=== PATIENT | female | born 1950 | race American Indian/Alaskan Native ===

== ENCOUNTER 2017-03-08 13:20 | Day surgery (SDC) | payer OTHER ==
[2017-03-08] MEDS ORDERED: NACL 0.9% 1000 ML 1,000 ML IV SCH (14:00)
--- NOTE | 2017-03-08 14:16 | Anesthesia Day of Surgery ---
Anesthesia Day of Surgery - Day of Surgery Patient Examined: Yes Patient H&P Reviewed: Yes Patient is NPO: Yes
--- NOTE | 2017-03-08 14:18 | Anesthesia Consultation ---
Anesthesia Consult and Med Hx Date of service: 03/08/17 - Airway Anesthetic Teeth Evaluation: Dentures ROM Head & Neck: Adequate Mental/Hyoid Distance: Adequate Mallampati Class: Class II Intubation Access Assessment: Good - Pulmonary Exam CTA: Yes (blbs clear) - Cardiac Exam Cardiac Exam: RRR - Pre-Operative Health Status ASA Pre-Surgery Classification: ASA3 Proposed Anesthetic Plan: MAC - Pulmonary Hx Asthma: Yes - Cardiovascular System Hx Hypertension: Yes - Central Nervous System Hx Neuromuscular Disorder: Yes (OA)
[2017-03-08] MEDS ORDERED: DIPRIVAN 10 MG/ML IV ONE ×2 (16:19)
[2017-03-08] MEDS ORDERED: WATER FOR IRRIG STERILE IR ONE (16:29)
[2017-03-08] MEDS ORDERED: XYLOCAINE MPF 2% ONE (16:36)
--- NOTE | 2017-03-08 17:08 | Operative Report ---
Operative Report Operative Report: Date of procedure: 03/08/2017 Procedure: Colonoscopy with hot biopsy polypectomy and ablation.] Attending physician: Scooter Kuhn MD Gas Pumping Station Helper: Scooter Kuhn MD Indication: Patient is a 66-year-old female who presents for colorectal cancer screening. Consent: Informed consent was obtained after advising the patient and family regarding nature of this procedure, its indications, potential benefits as well as possible complications including but not limited to bleeding perforation and adverse reaction to medication, infection as well as other cardiopulmonary complications. An informed written and verbal consent was then obtained after due opportunity was provided for questions and answers. Monitoring: Patient was monitored continuously with pulse oximetry and electrocardiographic recordings as well as blood pressure recordings. Vital signs remained stable throughout this procedure with no untoward events. Preoperative assessment: Patient was assessed immediately prior to this procedure for capacity to tolerate monitored anesthesia care and moderate sedation as well as general anesthesia. Patient's ASA classification is 2, Mallampati class is 2, Hyomental distance is 3. Instrument: Fujinon videocolonoscope Medications: Propofol given intravenously in divided doses for details please refer to anesthesia records. Description of procedure: Patient was placed in the left lateral decubitus position after achieving sedation, a digital rectal examination was performed following which the colonoscope was introduced into the anal verge and advanced to the cecum which was identified by the cecal valve, the appendiceal orifice, as well as by the cecal strap and direct transillumination. The colonoscope was subsequently withdrawn with careful inspection of all mucosal surfaces. Patient tolerated this procedure well and was subsequently taken to the recovery room. The following findings were noted. Findings: The cecum was normal. The ascending colon was normal. The descending colon was normal. Patient had a few scattered diverticula in the sigmoid colon. Also in the sigmoid colon there were 2 diminutive polyps. One measured approximately 4-5 mm was removed by hot biopsy polypectomy. The other measured approximately 3 mm was flat and was ablated. The rectum was normal. On the retroflex view at the anal verge, patient had internal hemorrhoids. Impression: Diminutive sigmoid colon polyps status post hot biopsy polypectomy and ablation Mild diverticulosis Internal hemorrhoids. Plan: Follow pathology report High-fiber diet. Repeat colonoscopy in 5 years ifpolyp is adenoma.
--- NOTE | 2017-03-08 17:09 | Discharge Summary ---
Short Stay Discharge Plan Activity: advance as tolerated Weight Bearing Status: Weight Bear as Tolerated Diet: regular
[2017-03-08 17:35] VITALS: BP 124/75
== END 2017-03-08 13:21 | disposition home or self-care (01) ==
LOC: GIO 13:20
PROVIDERS: ATTEND Internal Medicine Gastroenterology
DX: Z12.11 Encounter for screening for malignant neoplasm of colon (principal); K63.5 Polyp of colon; K57.30 Diverticulosis of large intestine without perforation or abscess without bleeding; K64.8 Other hemorrhoids; M19.90 Unspecified osteoarthritis, unspecified site; J45.909 Unspecified asthma, uncomplicated; I10 Essential (primary) hypertension; Z98.51 Tubal ligation status; Z79.899 Other long term (current) drug therapy; Z87.891 Personal history of nicotine dependence; Z72.89 Other problems related to lifestyle
CPT/HCPCS: 45384; 45388; 88305; J2704; J7030

== ENCOUNTER 2018-04-15 21:26 | Emergency (ER) | payer MEDICARE ==
[2018-04-15 21:42] VITALS: BP 121/75
[2018-04-16] MEDS ORDERED: TORADOL IM ONE (04:16)
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
== END 2018-04-16 05:00 | disposition home or self-care (01) ==
LOC: ED 21:26
DX: R51 Headache (principal); M25.512 Pain in left shoulder; M25.562 Pain in left knee; M25.561 Pain in right knee; M62.830 Muscle spasm of back; J45.909 Unspecified asthma, uncomplicated; I10 Essential (primary) hypertension; V49.49XA Driver injured in collision with other motor vehicles in traffic accident, initial encounter; Z98.51 Tubal ligation status; Y93.89 Activity, other specified; Y92.410 Unspecified street and highway as the place of occurrence of the external cause; Y99.8 Other external cause status
CPT/HCPCS: 96372; 99281; J1885

== ENCOUNTER 2018-12-24 22:39 | Emergency (ER) | payer MEDICARE ==
[2018-12-24 23:48] LABS: Hematocrit 39.9 % (30.3-42.9); Hemoglobin 13.5 gm/dl (10.1-14.3); Mean Corpuscular HGB Conc 34 % (30-34); Mean Corpuscular Volume 92 fl (79-97); Platelet Count 274 K/mm3 (140-440); Red Blood Count 4.32 M/mm3 (3.65-5.03); Red Cell Distribution Width 14.1 % (13.2-15.2)
[2018-12-25 00:02] VITALS: BP 144/79
[2018-12-25 00:08] LABS: BUN/Creatinine Ratio 21; Blood Urea Nitrogen 15 mg/dL (7-17); Calcium 8.8 mg/dL (8.4-10.2); Hemolysis Index 18
--- NOTE | 2018-12-25 00:25 | XRay Report ---
PROCEDURE: XR CHEST ROUTINE 2V TECHNIQUE: PA and lateral views the chest were similar. HISTORY: chest pain COMPARISONS: None FINDINGS: There are calcified granulomas in the right hilum and right lung base. There are no acute infiltrates or effusions. The heart size is normal. The skeletal structures reveal mild disc degeneration of the dorsal spine. IMPRESSION: No acute cardiopulmonary process.. This document is electronically signed by Gerry Palma MD., December 25 2018 12:22:48 AM ET
[2018-12-25 03:31] LABS: Basophils % (Manual) 0 % (0.0-1.8); Total Cells Counted 100
[2018-12-25 03:32] LABS: Platelet Estimate Consistent w Auto; RBC Morphology Normal
--- NOTE | 2018-12-25 03:59 | Emergency Department Report ---
ED Chest Pain HPI - General Chief Complaint: Chest Pain Stated Complaint: CHEST PAIN ON LEFT SIDE/NUMBNESS ON LT SIDE Time Seen by Provider: 12/25/18 03:57 Source: patient Mode of arrival: Ambulatory Limitations: No Limitations - History of Present Illness Initial Comments: Patient is 68-year-old female with history of hypertension. Patient presented t o the ER complaining of left-sided chest pain, sharp in nature with radiation to the left arm. Patient denied any shortness of breath, nausea or vomiting. MD Complaint: chest pain Severity scale (0 -10): 10 - Related Data Home Medications Medication Instructions Recorded Confirmed Last Taken Atenolol 25 mg PO DAILY 03/08/17 03/08/17 03/08/17 Hydrochlorothiazide 50 mg PO DAILY 03/08/17 03/08/17 03/08/17 Previous Rx's Medication Instructions Recorded Last Taken Type Promethazine /Codeine 5 ml PO Q6H PRN #60 ml 10/20/14 Unknown Rx [Phenergan/Codeine 6.25-10 mg/5 ml] Baclofen [Lioresal] 10 mg PO TID #15 tab 04/16/18 Unknown Rx Ibuprofen [Motrin 800 MG tab] 800 mg PO Q8HR PRN 10 Days #30 04/16/18 Unknown Rx tablet Naproxen [Naprosyn] 500 mg PO BID #14 tablet 12/25/18 Unknown Rx Allergies Allergy/AdvReac Type Severity Reaction Status Date / Time No Known Allergies Allergy Verified 03/08/17 14:20 Heart Score - HEART Score History: Moderately suspicious EKG: Non-specific Age: > 65 Risk factors: 1-2 risk factors Troponin: < normal limit HEART Score: 5 - Critical Actions Critical Actions: 4-6 pts:12-16.6% risk of adverse cardiac event. Should be admitted ED Review of Systems ROS: Stated complaint: CHEST PAIN ON LEFT SIDE/NUMBNESS ON LT SIDE Other details as noted in HPI Comment: All other systems reviewed and negative Constitutional: denies: chills, fever Respiratory: denies: cough, orthopnea, shortness of breath, SOB with exertion, wheezing Gastrointestinal: denies: abdominal pain, nausea, diarrhea, constipation, hematochezia ED Past Medical Hx - Past Medical History Previous Medical History?: Yes Hx Hypertension: Yes Hx Asthma: Yes - Surgical History Past Surgical History?: Yes Additional Surgical History: tubiligation - Social History Smoking Status: Never Smoker Substance Use Type: None - Medications Home Medications: Home Medications Medication Instructions Recorded Confirmed Last Taken Type Promethazine /Codeine 5 ml PO Q6H PRN #60 ml 10/20/14 03/08/17 Unknown Rx [Phenergan/Codeine 6.25-10 mg/5 ml] Atenolol 25 mg PO DAILY 03/08/17 03/08/17 03/08/17 History Hydrochlorothiazide 50 mg PO DAILY 03/08/17 03/08/17 03/08/17 History Baclofen [Lioresal] 10 mg PO TID #15 tab 04/16/18 Unknown Rx Ibuprofen [Motrin 800 MG tab] 800 mg PO Q8HR PRN 10 Days #30 04/16/18 Unknown Rx tablet Naproxen [Naprosyn] 500 mg PO BID #14 tablet 12/25/18 Unknown Rx ED Physical Exam - General Limitations: No Limitations General appearance: alert, in no apparent distress - Head Head exam: Present: atraumatic, normocephalic, normal inspection - Eye Eye exam: Present: normal appearance, PERRL - ENT ENT exam: Present: normal exam, normal orophraynx, mucous membranes moist - Respiratory Respiratory exam: Present: normal lung sounds bilaterally - Cardiovascular Cardiovascular Exam: Present: regular rate, normal rhythm, normal heart sounds - GI/Abdominal GI/Abdominal exam: Present: soft - Extremities Exam Extremities exam: Present: normal inspection, full ROM, normal capillary refill - Back Exam Back exam: Present: normal inspection, full ROM. Absent: CVA tenderness (R), CVA tenderness (L) - Neurological Exam Neurological exam: Present: alert, oriented X3, CN II-XII intact, normal gait, reflexes normal - Skin Skin exam: Present: warm, intact, normal color ED Course Vital Signs 12/25/18 00:00 Temperature 98.3 F Pulse Rate 55 L Respiratory 18 Rate Blood Pressure 144/79 O2 Sat by Pulse 98 Oximetry - Reevaluation(s) Reevaluation #1: 12/25/18 04:00 I discussed with the patient and the need for admission for further management of our chest pain. Patient refused the admission and stated that she wanted to go home. Patient did not give any reason but she stated that she will follow-up with her primary care physician. ED Medical Decision Making - Lab Data Result diagrams: 12/24/18 23:32 12/24/18 23:32 - EKG Data -: EKG Interpreted by Me EKG shows normal: sinus rhythm Rate: normal - EKG Data Interpretation: no acute changes - Radiology Data Radiology results: report reviewed Chest x-ray is unremarkable. Critical care attestation.: If time is entered above; I have spent that time in minutes in the direct care of this critically ill patient, excluding procedure time. ED Disposition Clinical Impression: Chest pain Disposition: DC-07 LEFT AGAINST MED ADVICE Is pt being admited?: No Condition: Stable Instructions: Chest Pain (ED) Prescriptions: Naproxen [Naprosyn] 500 mg PO BID #14 tablet Referrals: MARIBEL POZO MD [Primary Care Provider] - 3-5 Days
== END 2018-12-25 04:00 | disposition left against medical advice (07) ==
LOC: ED 22:39
DX: R07.89 Other chest pain (principal); I10 Essential (primary) hypertension; J45.909 Unspecified asthma, uncomplicated; Z98.51 Tubal ligation status
CPT/HCPCS: 36415; 71046; 80048; 84484; 85007; 85025; 93005; 93010; 99284

== ENCOUNTER 2019-05-27 11:37 | Emergency (ER) | payer OTHER, MEDICARE ==
[2019-05-27 12:00] VITALS: BP 156/85
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
[2019-05-27] MEDS ORDERED: IBUPROFEN PO ONE (13:26)
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
== END 2019-05-27 14:47 | disposition home or self-care (01) ==
LOC: ED 11:37
DX: R07.89 Other chest pain (principal); M54.2 Cervicalgia; R51 Headache; I10 Essential (primary) hypertension; J45.909 Unspecified asthma, uncomplicated; Z98.51 Tubal ligation status; Z79.899 Other long term (current) drug therapy; V49.40XA Driver injured in collision with unspecified motor vehicles in traffic accident, initial encounter; Y93.89 Activity, other specified; Y92.410 Unspecified street and highway as the place of occurrence of the external cause; Y99.8 Other external cause status
CPT/HCPCS: 71046; 72040; 72070; 72100; 93005; 93010

== ENCOUNTER 2019-10-13 20:14 | Emergency (ER) | payer MEDICARE ==
[2019-10-13 20:56] VITALS: BP 126/59
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
== END 2019-10-14 02:14 | disposition left against medical advice (07) ==
LOC: ED 20:14
DX: R07.89 Other chest pain (principal); M54.2 Cervicalgia; Z53.21 Procedure and treatment not carried out due to patient leaving prior to being seen by health care provider
CPT/HCPCS: 72040

== ENCOUNTER 2022-02-23 15:05 | Emergency (ER) | payer MEDICARE ==
--- NOTE | 2022-02-23 16:03 | Emergency Department Report ---
ED Extremity Problem HPI - General Chief complaint: Extremity Problem,Nontraumatic Stated complaint: CT OF LUNGS Time Seen by Provider: 02/23/22 15:55 Source: patient Mode of arrival: Ambulatory Limitations: No Limitations - History of Present Illness Initial comments: Patient is a 71-year-old female presenting to ED at request of her PCP after outpatient ultrasound revealed DVT of her left lower extremity. She was sent here to obtain CT of her chest to rule out PE. She reports pain in her left leg for the past 2 weeks however denies any instances of chest pain or shortness of breath. Severity scale (0 -10): 10 - Related Data Home Medications Medication Instructions Recorded Confirmed Last Taken Hydrochlorothiazide 25 mg PO DAILY 03/08/17 05/27/19 05/27/19 Losartan [Cozaar] 100 mg PO QDAY 05/27/19 05/27/19 05/27/19 100 Previous Rx's Medication Instructions Recorded Last Taken Type Cyclobenzaprine [Flexeril] 10 mg PO TID PRN #10 tablet 05/27/19 Unknown Rx predniSONE [Deltasone] 20 mg PO DAILY #5 tablet 05/27/19 Unknown Rx traMADoL [Ultram 50 MG tab] 50 mg PO Q6HR PRN #10 tablet 02/23/22 Unknown Rx Allergies Allergy/AdvReac Type Severity Reaction Status Date / Time No Known Allergies Allergy Verified 03/08/17 14:20 ED Review of Systems ROS: Stated complaint: CT OF LUNGS Other details as noted in HPI Constitutional: denies: chills, fever Respiratory: denies: cough, shortness of breath, wheezing Cardiovascular: denies: chest pain, palpitations Gastrointestinal: denies: abdominal pain, nausea, diarrhea Musculoskeletal: denies: back pain, joint swelling, arthralgia Skin: denies: rash, lesions Neurological: denies: headache, weakness, paresthesias Psychiatric: denies: anxiety, depression ED Past Medical Hx - Past Medical History Hx Hypertension: Yes Hx Asthma: Yes - Surgical History Additional Surgical History: tubiligation - Social History Smoking Status: Never Smoker Substance Use Type: None - Medications Home Medications: Home Medications Medication Instructions Recorded Confirmed Last Taken Type Hydrochlorothiazide 25 mg PO DAILY 03/08/17 05/27/19 05/27/19 History Cyclobenzaprine [Flexeril] 10 mg PO TID PRN #10 tablet 05/27/19 Unknown Rx Losartan [Cozaar] 100 mg PO QDAY 05/27/19 05/27/19 05/27/19 History 100 predniSONE [Deltasone] 20 mg PO DAILY #5 tablet 05/27/19 Unknown Rx traMADoL [Ultram 50 MG tab] 50 mg PO Q6HR PRN #10 tablet 02/23/22 Unknown Rx ED Physical Exam - General Limitations: No Limitations General appearance: alert, in no apparent distress - Head Head exam: Present: atraumatic, normocephalic - Respiratory Respiratory exam: Present: normal lung sounds bilaterally. Absent: respiratory distress - Cardiovascular Cardiovascular Exam: Present: regular rate, normal rhythm. Absent: systolic murmur, diastolic murmur, rubs, gallop - GI/Abdominal GI/Abdominal exam: Present: soft. Absent: distended, tenderness - Rectal Rectal exam: Present: deferred - Extremities Exam Extremities exam: Present: calf tenderness (Left) - Neurological Exam Neurological exam: Present: alert, oriented X3, CN II-XII intact - Psychiatric Psychiatric exam: Present: normal affect, normal mood - Skin Skin exam: Present: warm, dry, intact, normal color ED Course Vital Signs 02/23/22 02/23/22 02/23/22 15:27 16:15 16:16 Temperature 98.4 F 98.5 F Pulse Rate 52 L 61 Respiratory 20 17 Rate Blood Pressure 211/93 Blood Pressure 176/89 213/98 [Right] O2 Sat by Pulse 97 96 100 Oximetry 02/23/22 02/23/22 16:56 18:48 Temperature Pulse Rate 63 61 Respiratory 17 15 Rate Blood Pressure Blood Pressure 174/74 [Right] O2 Sat by Pulse 100 98 Oximetry ED Medical Decision Making - Lab Data Result diagrams: 02/23/22 16:18 02/23/22 16:18 - Medical Decision Making Ultrasound of left lower extremity negative for DVT. CTA chest negative for PE. I discussed results with the patient. She was given morphine for pain. She is stable for discharge home with PCP follow-up as scheduled. Critical care attestation.: If time is entered above; I have spent that time in minutes in the direct care of this critically ill patient, excluding procedure time. ED Disposition Clinical Impression: Left leg pain Disposition: HOME / SELF CARE / HOMELESS Is pt being admited?: No Condition: Stable Instructions: Pain Without a Known Cause Time of Disposition: 22:17
[2022-02-23] MEDS ORDERED: ONDANSETRON 4 MG/2 ML INJ IV ONE (16:04)
[2022-02-23] MEDS ORDERED: MORPHINE 4 MG/1 ML INJ IV ONE ×2 (16:04→20:14)
[2022-02-23 16:41] LABS: Basophils % (Auto) 0.8 % (0.0-1.8); Eosinophils # (Auto) 0.1 K/mm3 (0.0-0.4); Eosinophils % (Auto) 3.2 % (0.0-4.3); Hematocrit 42.9 % (30.3-42.9); Hemoglobin 14.2 gm/dl (10.1-14.3); Lymphocytes # (Auto) 2.1 K/mm3 (1.2-5.4); Lymphocytes % (Auto) 49.3 % (13.4-35.0); Mean Corpuscular HGB Conc 33 % (30-34); Mean Corpuscular Volume 94 fl (79-97); Monocytes # (Auto) 0.5 K/mm3 (0.0-0.8); Monocytes % (Auto) 11.1 % (0.0-7.3); Platelet Count 251 K/mm3 (140-440); Red Blood Count 4.56 M/mm3 (3.65-5.03); Red Cell Distribution Width 13.7 % (13.2-15.2)
[2022-02-23 16:53] LABS: INR 0.92 (0.87-1.13)
[2022-02-23 16:59] VITALS: BP 174/74
[2022-02-23 17:03] LABS: Alanine Aminotransferase 16 units/L (7-56); Albumin 4.4 g/dL (3.9-5); Blood Urea Nitrogen 19 mg/dL (7-17); Hemolysis Index 11
[2022-02-23 17:20] LABS: BUN/Creatinine Ratio 27; Bilirubin,Direct < 0.2 mg/dL (0-0.2)
--- NOTE | 2022-02-23 18:43 | Cat Scan Report ---
CTA CHEST WITH CONTRAST INDICATION / CLINICAL INFORMATION: Rule out PE. Shortness of breath TECHNIQUE: Axial CT images were obtained through the chest after injection of IV contrast. 3 plane AL P and/or 3D reconstructions were produced. All CT scans at this location are performed using CT dose reduction for ALARA by means of automated exposure control. COMPARISON: None available. FINDINGS: PULMONARY EMBOLUS: None. THORACIC AORTA: Mild vascular calcifications HEART: No significant abnormality. CORONARY ARTERY CALCIFICATION: Absent -- None. MEDIASTINUM / MACO: No significant abnormality. Calcified right hilar granulomas PLEURA: No pleural effusion. No pneumothorax. LUNGS: No acute air space or interstitial disease. Calcified right middle lobe granuloma and parenchy mal scarring/atelectasis. Linear bibasilar scarring/atelectasis as well. ADDITIONAL FINDINGS: None. UPPER ABDOMEN: No acute findings. SKELETAL STRUCTURES: No significant osseous abnormality. IMPRESSION: 1. No CT evidence for pulmonary embolism. 2. Prior granulomatous disease with bilateral linear atelectasis/scarring Signer Name: Hubert Payton MD Signed: 02/23/2022 6:39 PM Workstation Name: [id number]
--- NOTE | 2022-02-23 21:06 | Vascular Lab Report ---
DUPLEX DOPPLER LOWER EXTREMITY VEINS, LEFT INDICATION / CLINICAL INFORMATION: DVT. TECHNIQUE: Duplex doppler imaging was performed through the veins of the left lower extremity using venous compr ession and other maneuvers. COMPARISON: None available. FINDINGS: LEFT COMMON FEMORAL VEIN: Negative. LEFT FEMORAL VEIN: Negative. LEFT POPLITEAL VEIN: Negative. LEFT CALF VEINS: Negative. ADDITIONAL FINDINGS: None. IMPRESSION: 1. No sonographic evidence for DVT in the left lower extremity. Signer Name: Chencho Silva MD Signed: 02/23/2022 9:01 PM Workstation Name: [id number]
== END 2022-02-24 00:16 | disposition home or self-care (01) ==
LOC: ED 15:05
DX: M79.605 Pain in left leg (principal); I10 Essential (primary) hypertension; J45.909 Unspecified asthma, uncomplicated
CPT/HCPCS: 36415; 71275; 80048; 80076; 85025; 85610; 93971; 96374; 96375; 96376; 99284; J2270; J2405; Q9967